=== PATIENT | female | born 1995 | race Caucasian/White ===

== ENCOUNTER 2022-12-17 08:56 | Day surgery (SDC) | payer OTHER ==
[2022-12-17] MEDS ORDERED: Propofol 200 MG/20 ML SDV IV ONE (08:57)
[2022-12-17] MEDS ORDERED: Sodium Chloride 0.9% 10 ML Syringe FLUSH PRN (09:15)
[2022-12-17] MEDS ORDERED: Lactated Ringers 1,000 ML IV SCH (09:15)
== END 2022-12-17 12:35 | disposition home or self-care (01) ==
LOC: FB.SDS 08:56
PROVIDERS: ATTEND Surgery
DX: K52.9 Noninfective gastroenteritis and colitis, unspecified (principal); K29.80 Duodenitis without bleeding; K29.50 Unspecified chronic gastritis without bleeding; K63.89 Other specified diseases of intestine; Z79.899 Other long term (current) drug therapy
CPT/HCPCS: 88305; 88342; J2704; J7120